=== PATIENT | male | born 1960 | race American Indian/Alaskan Native ===

== ENCOUNTER 2017-06-19 16:48 | Emergency (ER) | payer OTHER ==
--- NOTE | 2017-06-19 18:14 | Cat Scan Report ---
FINAL REPORT EXAM: CT HEAD/BRAIN WO CON HISTORY: syncope, fall with severe occiptial headache pain TECHNIQUE: Axial noncontrast CT images of the brain. Total exam DLP 1505.87 mGy-cm Comparison: None FINDINGS: There is normal gutierrez-white differentiation without midline shift or mass effect. There are no acute extra-axial fluid collections or intraparenchymal blood products. Ventricles and cisterns have normal size and configuration. The posterior fossa has streak artifact but no definite blood products. Mildly dysconjugate gaze. Incidental identified skull cavum septum pellucidum. Left maxillary sinus mucous retention cyst. Posterior left ethmoid and left sphenoid sinus mucosal thickening. No calvarial fracture identified with certainty. There is a linear irregular density in the occipital bone which does not appear to extend to the internal calvarial margin. There is a left posterior triangle 1 centimeter lymph node which appears slightly inflamed. IMPRESSION: No acute blood products identified. Slight limitation in the assessment of posterior fossa, grossly unremarkable. No definite calvarial fracture. 1 centimeter left posterior triangle mildly inflamed appearing lymph node. Left ethmoid, maxillary, and sphenoid sinus disease. If symptoms persist, recommend short interval follow-up CT or MR depending on the clinical suspicion. If there is a concern for calvarial fracture, recommend thin section bony algorithm images.
[2017-06-19 18:25] LABS: INR 0.99 (0.87-1.13)
[2017-06-19 18:26] LABS: Partial Thromboplastin Time 34.3 Sec. (24.2-36.6)
[2017-06-19 18:28] LABS: Basophils % (Auto) 0.3 % (0.0-1.8); Eosinophils % (Auto) 3.2 % (0.0-4.3); Hematocrit 41.3 % (35.5-45.6); Hemoglobin 13.4 gm/dl (11.8-15.2); Mean Corpuscular HGB Conc 33 % (32-34); Mean Corpuscular Hemoglobin 27 pg (28-32); Mean Corpuscular Volume 84 fl (84-94); Platelet Count 227 K/mm3 (140-440); Red Blood Count 4.91 M/mm3 (3.65-5.03); Red Cell Distribution Width 15.2 % (13.2-15.2); White Blood Count 9.5 K/mm3 (4.5-11.0)
[2017-06-19 19:22] LABS: Anion Gap 19 mmol/L; BUN/Creatinine Ratio 10; Blood Urea Nitrogen 8 mg/dL (9-20); Calcium 9.5 mg/dL (8.4-10.2); Carbon Dioxide 29 mmol/L (22-30); Chloride 98.3 mmol/L (98-107); Glucose 132 mg/dL (75-100); Potassium 5.3 mmol/L (3.6-5.0); Sodium 141 mmol/L (137-145)
[2017-06-20] MEDS ORDERED: KIONEX PO ONE (07:31)
--- NOTE | 2017-06-20 07:31 | Emergency Department Report ---
HPI - General Chief Complaint: Syncope Time Seen by Provider: 06/20/17 07:06 - HPI HPI: This is a 57-year-old male presents to the emergency department from home after he passed out inside his bathroom yesterday afternoon. The patient says that he was not in the act of using the bathroom or doing anything specific when all of a sudden he woke up on the floor of the bathroom with some pain to the back of his head and side of his neck. He then got himself up and asked family or friends to bring him to the emergency department. He did not take anything for his symptoms prior presentation. He has a past medical history of hypertension and says that his blood pressure had been running high for the past week or so and he spoke to his PCP, Dr. Rigo Ortiz, who told him to take 2 of his 10 mg Norvasc. The patient says that he has been checking the blood pressure with this double dose of Norvasc and it was at a reasonable level. He denies any chest pain, shortness of breath, back pain, fever, nausea, vomiting or vision change. Currently the headache has resolved and he still has some pain to the side of the neck. ED Past Medical Hx - Past Medical History Previous Medical History?: Yes Hx Hypertension: Yes - Surgical History Past Surgical History?: Yes Additional Surgical History: left knee surgery, Tonsillectomy - Social History Smoking Status: Former Smoker Substance Use Type: Alcohol - Medications Home Medications: Home Medications Medication Instructions Recorded Confirmed Last Taken Type amLODIPine [Norvasc] 20 mg PO DAILY 06/19/17 06/19/17 Unknown History ED Review of Systems ROS: Stated complaint: SYNCOPE Other details as noted in HPI Comment: All other systems reviewed and negative Constitutional: denies: chills, fever Eyes: denies: eye pain, eye discharge, vision change ENT: denies: ear pain, throat pain Respiratory: denies: cough, shortness of breath, wheezing Cardiovascular: syncope. denies: chest pain, palpitations Gastrointestinal: denies: abdominal pain, nausea, diarrhea Genitourinary: denies: urgency, dysuria Musculoskeletal: other (neck pain). denies: back pain Skin: denies: rash, lesions Neurological: headache. denies: numbness, paresthesias Physical Exam - Physical Exam Vital Signs: Vital Signs 06/19/17 06/20/17 17:01 01:09 Temperature 98.7 F 98.9 F Pulse Rate 93 H 89 Respiratory 18 18 Rate Blood Pressure 164/94 160/90 O2 Sat by Pulse 93 95 Oximetry Physical Exam: GENERAL: The patient is well-developed well-nourished. HENT: Normocephalic. Atraumatic. Patient has moist mucous membranes. EYES: Extraocular motions are intact. Pupils equal reactive to light bilaterally. There is some fatigable horizontal nystagmus. NECK: Supple. Trachea is midline. CHEST/LUNGS: Clear to auscultation. There is no respiratory distress noted. HEART/CARDIOVASCULAR: Regular. There is no tachycardia. There is no murmur. ABDOMEN: Abdomen is soft, nontender. Patient has normal bowel sounds. There is no abdominal distention. SKIN: Skin is warm and dry. NEURO: The patient is awake, alert, and oriented. The patient is cooperative. The patient has no focal neurologic deficits. The patient has normal speech and gait. Cranial nerves II through XII grossly intact. No pronator drift. No dysmetria. MUSCULOSKELETAL: There is no tenderness or deformity. There is no limitation range of motion. There is no evidence of acute injury. Muscle strength 5 out of 5 upper and lower extremity bilaterally. ED Course Vital Signs 06/19/17 06/20/17 17:01 01:09 Temperature 98.7 F 98.9 F Pulse Rate 93 H 89 Respiratory 18 18 Rate Blood Pressure 164/94 160/90 O2 Sat by Pulse 93 95 Oximetry ED Medical Decision Making - Lab Data Result diagrams: 06/19/17 17:45 06/19/17 17:45 - EKG Data -: EKG Interpreted by Me EKG shows normal: sinus rhythm, axis, intervals (slightly prolonged ID interval) , QRS complexes (incomplete right bundle branch block), ST-T waves Rate: normal - EKG Data When compared to previous EKG there are: previous EKG unavailable Interpretation: other (sinus rhythm, mildly prolonged ID interval, incomplete right bundle branch block) - Radiology Data Radiology results: report reviewed, image reviewed interpreted by me: X-ray of the cervical spine does not show any fracture, dislocation or any acute process. EXAM: CT HEAD/BRAIN WO CON HISTORY: syncope, fall with severe occiptial headache pain TECHNIQUE: Axial noncontrast CT images of the brain. Total exam DLP 1505.87 mGy-cm Comparison: None FINDINGS: There is normal gutierrez-white differentiation without midline shift or mass effect. There are no acute extra-axial fluid collections or intraparenchymal blood products. Ventricles and cisterns have normal size and configuration. The posterior fossa has streak artifact but no definite blood products. Mildly dysconjugate gaze. Incidental identified skull cavum septum pellucidum. Left maxillary sinus mucous retention cyst. Posterior left ethmoid and left sphenoid sinus mucosal thickening. No calvarial fracture identified with certainty. There is a linear irregular density in the occipital bone which does not appear to extend to the internal calvarial margin. There is a left posterior triangle 1 centimeter lymph node which appears slightly inflamed. IMPRESSION: No acute blood products identified. Slight limitation in the assessment of posterior fossa, grossly unremarkable. No definite calvarial fracture. 1 centimeter left posterior triangle mildly inflamed appearing lymph node. Left ethmoid, maxillary, and sphenoid sinus disease. If symptoms persist, recommend short interval follow-up CT or MR depending on the clinical suspicion. If there is a concern for calvarial fracture, recommend thin section bony algorithm images. Transcribed By: CINDY Dictated By: ANITA NUNEZ Electronically Authenticated By: ANITA NUNEZ Signed Date/Time: 06/19/17 1411 - Medical Decision Making The patient had one episode of passing out that occurred about 24 hours ago at this point. He originally had a headache but that resolved. He had a CT of the head without contrast that did not show any bleed, shift, mass or any acute process. X-ray of the cervical spine does not show any acute fracture or any subluxation or any acute process. EKG did not show any ST elevation [place] or dysrhythmia. Labs are mostly unremarkable and do not show any etiology of his symptoms. He had some mild hyperkalemia with potassium of 5.3 and he was given some Kayexalate. He was reevaluated multiple times of her multiple hours and has remained stable. There were no focal, motor or sensory deficits and his cranial nerves have been intact. Vital signs have been stable throughout his ED course including being afebrile. Brought these reasons, the patient appears safe for discharge home. He has been encouraged to follow up with his primary care physician and return to the ER with any worsening of his symptoms or any acute distress. - Differential Diagnosis vasovagal, orthostatic hypotension, dysrhythmia, hypoglycemia Critical Care Time: No Critical care attestation.: If time is entered above; I have spent that time in minutes in the direct care of this critically ill patient, excluding procedure time. ED Disposition Clinical Impression: Syncope Qualifiers: Syncope type: unspecified Qualified Code(s): R55 - Syncope and collapse Hypertension Qualifiers: Hypertension type: essential hypertension Qualified Code(s): I10 - Essential ( primary) hypertension Disposition: DC- TO HOME OR SELFCARE Is pt being admited?: No Condition: Stable Instructions: Syncope (ED), Hypertension (ED) Additional Instructions: Please follow-up with your primary care physician as soon as possible. Return to the emergency department with any further episodes of passing out, worsening of your symptoms, or any acute distress. Try and stay away from foods that are high in salt and caffeinated products to help with your blood pressure. Keep a blood pressure log. Referrals: PRIMARY CARE, [Primary Care Provider] - [facility] Forms: Work/School Release Form(ED) Time of Disposition: 08:45
--- NOTE | 2017-06-20 08:22 | XRay Report ---
CERVICAL SPINE, 3 views: History: Neck pain. Findings: The vertebral bodies, disk spaces, posterior elements and prevertebral soft tissues are intact. The dens is intact. No acute fracture or malalignment is identified. Mild to moderate disc spurring at C4-5 and C5-6 is noted. Impression: Mild cervical spondylosis.
[2017-06-20 09:07] VITALS: BP 142/94
== END 2017-06-20 09:06 | disposition home or self-care (01) ==
LOC: ED 16:48
DX: R55 Syncope and collapse (principal); I10 Essential (primary) hypertension; Z87.891 Personal history of nicotine dependence
CPT/HCPCS: 36415; 70450; 72040; 80048; 84443; 84484; 85025; 85610; 85670; 85730; 93005; 93010